=== PATIENT | male | born 1985 | race Hispanic/Latino ===

== ENCOUNTER 2018-07-30 15:32 | Emergency (ER) | payer OTHER ==
[2018-07-30] MEDS ORDERED: KETOROLAC TROMETHAMINE 60 MG/2 ML VIAL ONE (15:42)
[2018-07-30] MEDS ORDERED: ACETAMINOPHEN ELIXIR 650 MG/20.3 ML UDCUP ONE (15:42)
[2018-07-30 15:58] LABS: RAPID GROUP A STREP NEGATIVE (NEGATIVE)
== END 2018-07-30 16:32 | disposition home or self-care (01) ==
LOC: EDH 15:32
DX: J03.90 Acute tonsillitis, unspecified (principal); R50.9 Fever, unspecified; Z87.442 Personal history of urinary calculi; Z72.0 Tobacco use
CPT/HCPCS: 87804 ×2; 87880; 96372; 99284; J1885